=== PATIENT | female | born 1950 | race Caucasian/White ===

== ENCOUNTER 2016-12-29 02:32 | Emergency (ER) | payer MEDICARE, OTHER ==
[2016-12-29] MEDS ORDERED: Ondansetron 4 MG/2 ML SDV IV ONE (02:38)
[2016-12-29] MEDS ORDERED: Pantoprazole 40 MG Vial IVPUSH ONE (02:38)
--- NOTE | 2016-12-29 02:41 | EDM.PDOC ---
ED HPI GENERAL MEDICAL PROBLEM - General Chief Complaint: Gastrointestinal Problem Stated Complaint: VOMITING BLOOD [phone] Time Seen by Provider: 12/29/16 02:39 Source of Information: Reports: Patient, Family History Limitations: Reports: No Limitations - History of Present Illness INITIAL COMMENTS - FREE TEXT/NARRATIVE: states got up to bathroom and suddenly vomited blood. spouse states dark alcantara colour. denies any pain. no ulcers but does have divertic. denies diarrhoea. spouse states Pt had good appetite yesterday but not today. also denies prior h/ o. - Related Data Allergies Allergy/AdvReac Type Severity Reaction Status Date / Time No Known Allergies Allergy Verified 12/29/16 02:44 Home Meds: Home Meds Enalapril [Vasotec] 10 mg PO DAILY 12/29/16 [History] Sertraline [Zoloft] 50 mg PO DAILY 12/29/16 [History] ED ROS GENERAL - Review of Systems Review Of Systems: ROS reveals no pertinent complaints other than HPI. ED EXAM, GI/ABD - Physical Exam Exam: See Below Exam Limited By: No Limitations General Appearance: Alert, WD/WN, Mild Distress, Other (discomfort) Ears: Hearing Grossly Normal Throat/Mouth: Normal Voice, No Airway Compromise Head: Atraumatic Neck: Non-Tender, Full Range of Motion Respiratory/Chest: No Respiratory Distress Cardiovascular: Regular Rate, Rhythm GI/Abdominal: Soft, Non-Tender, Hyperactive Bowel Sounds Rectal (Female) Exam: Other (dark minimal stool obtained) Neurological: Alert, Oriented, Normal Cognition, Normal Gait, No Motor/Sensory Deficits Psychiatric: Flat Affect Skin Exam: Warm, Dry Lymphatic: No Adenopathy Course - Vital Signs Last Recorded V/S: Last Vital Signs Temp 35.8 C 12/29/16 02:35 Pulse 99 12/29/16 02:59 Resp 18 12/29/16 02:59 BP 105/80 12/29/16 02:59 Pulse Ox 98 12/29/16 02:59 - Orders/Labs/Meds Orders: Active Orders 24 hr Category Date Time Status Pantoprazole [ProTONIX IV] 40 mg Med 12/29/16 02:45 Active Sodium Chloride 0.9% [Normal Saline] 100 ml IV .CONTINUOS Sodium Chloride 0.9% [Normal Saline] 1,000 ml Med 12/29/16 02:45 Active IV ASDIRECTED Sodium Chloride 0.9% [Normal Saline] 1,000 ml Med 12/29/16 03:00 Ordered IV ASDIRECTED Medication Orders Pantoprazole Sodium 40 mg/ (Sodium Chloride) 100 mls @ 20 mls/hr IV .CONTINUOS MARIANGEL Last Admin: 12/29/16 02:48 Dose: 20 mls/hr Sodium Chloride (Normal Saline) 1,000 mls @ 500 mls/hr IV ASDIRECTED MARIANGEL Last Admin: 12/29/16 02:41 Dose: 500 mls/hr Sodium Chloride (Normal Saline) 1,000 mls @ 500 mls/hr IV ASDIRECTED MARIANGEL Last Admin: 12/29/16 02:59 Dose: 500 mls/hr Labs: Laboratory Tests 12/29/16 12/29/16 12/29/16 Range/Units 02:36 02:36 02:36 WBC 10.8 H (5.0-10.0) 10^3/uL RBC 2.98 L (4.2-5.4) 10^6/uL Hgb 9.3 L (12.0-16.0) g/dL Hct 28.4 L (37.0-47.0) % MCV 95.3 (80-100) fL MCH 31.2 (27.0-34.0) pg MCHC 32.7 L (33.0-35.0) g/dL Plt Count 272 (150-450) 10^3/uL Neut % (Auto) 55.0 (42.2-75.2) % Lymph % (Auto) 33.7 (20.5-50.1) % [place] % (Auto) 8.2 H (2-8) % Eos % (Auto) 2.6 (1.0-3.0) % Baso % (Auto) 0.5 (0.0-1.0) % PT 10.0 (9.0-12.0) SEC INR 1.0 (0.9-1.2) APTT < 22.0 L (22.0-34.0) SEC Sodium 137 (135-145) mmol/L Potassium 3.9 (3.6-5.0) mmol/L Chloride 104 (101-111) mmol/L Carbon Dioxide 22.0 (21.0-31.0) mmol/L Anion Gap 14.9 BUN 45 H (7-18) mg/dL Creatinine 0.7 (0.6-1.3) mg/dL Est Cr Clr Drug Dosing 72.01 mL/min Estimated GFR (MDRD) > 60 BUN/Creatinine Ratio 64.28 Glucose 157 H (74-105) mg/dL Calcium 9.1 (8.4-10.2) mg/dl Total Bilirubin 0.8 (0.2-1.0) mg/dL AST 18 (10-42) IU/L ALT 19 (10-60) IU/L Alkaline Phosphatase 51 (42-121) IU/L Total Protein 6.1 L (6.7-8.2) g/dl Albumin 3.4 (3.2-5.5) g/dl Globulin 2.7 Albumin/Globulin Ratio 1.26 Meds: Medications Generic Name Dose Route Start Last Admin Trade Name Freq PRN Reason Stop Dose Admin Pantoprazole Sodium 40 mg/ 100 mls @ 20 mls/hr 12/29/16 02:45 12/29/16 02:48 Sodium Chloride IV 20 mls/hr .CONTINUOS MARIANGEL Administration Sodium Chloride 1,000 mls @ 500 mls/hr 12/29/16 02:45 12/29/16 02:41 Normal Saline IV 500 mls/hr ASDIRECTED MARIANGEL Administration Sodium Chloride 1,000 mls @ 500 mls/hr 12/29/16 03:00 12/29/16 02:59 Normal Saline IV 500 mls/hr ASDIRECTED MARIANGEL Administration Discontinued Medications Generic Name Dose Route Start Last Admin Trade Name Freq PRN Reason Stop Dose Admin Iopamidol 100 ml 12/29/16 02:56 12/29/16 03:11 Isovue-300 (61%) IVPUSH 12/29/16 02:57 100 ml ONETIME ONE Administration Ondansetron HCl 4 mg 12/29/16 02:38 12/29/16 02:44 Zofran IV 12/29/16 02:39 4 mg ONETIME ONE Administration Pantoprazole Sodium 80 mg 12/29/16 02:38 12/29/16 02:46 Protonix Iv IVPUSH 12/29/16 02:39 80 mg .BOLUS ONE Administration - Re-Assessments/Exams Free Text/Narrative Re-Assessment/Exam: 12/29/16 04:29 re-exam; resting peacefully no further c/o N/V. case discussed with Dr Pza @ who kindly accepted Pt. Departure - Departure Time of Disposition: 04:29 Disposition: DC/Tfer to Acute Hospital 02 Condition: Good Clinical Impression: Upper GI bleed, Lower GI bleed - Discharge Information Forms: Interfacility Transfer EMTALA - My Orders Last 24 Hours: My Active Orders 12/29/16 02:45 Pantoprazole [ProTONIX IV] 40 mg Sodium Chloride 0.9% [Normal Saline] 100 ml IV .CONTINUOS Sodium Chloride 0.9% [Normal Saline] 1,000 ml IV ASDIRECTED 12/29/16 03:00 Sodium Chloride 0.9% [Normal Saline] 1,000 ml IV ASDIRECTED - Assessment/Plan Last 24 Hours: My Active Orders 12/29/16 02:45 Pantoprazole [ProTONIX IV] 40 mg Sodium Chloride 0.9% [Normal Saline] 100 ml IV .CONTINUOS Sodium Chloride 0.9% [Normal Saline] 1,000 ml IV ASDIRECTED 12/29/16 03:00 Sodium Chloride 0.9% [Normal Saline] 1,000 ml IV ASDIRECTED
[2016-12-29] MEDS ORDERED: Pantoprazole 40 MG in Sodium Chloride 0.9% 100 ML IV SCH (02:45)
[2016-12-29] MEDS ORDERED: Sodium Chloride 0.9% 1,000 ML IV SCH ×2 (02:45→03:00)
[2016-12-29] MEDS ORDERED: Iopamidol 612 MG/ML 100 ML Bottle IVPUSH ONE (02:56)
[2016-12-29 03:00] VITALS: BP 105/80
[2016-12-29 03:03] LABS: CHLORIDE,CL 104 mmol/L (101-111); SODIUM,NA 137 mmol/L (135-145)
== END 2016-12-29 05:21 ==
LOC: DL.ED 02:32
DX: K92.0 Hematemesis (principal); Z79.899 Other long term (current) drug therapy; R10.13 Epigastric pain; K57.90 Diverticulosis of intestine, part unspecified, without perforation or abscess without bleeding
CPT/HCPCS: 36415; 74177; 80053; 82272; 85025; 85610; 85730; 96365; 96366; 96368; 96375; 96376; 99284; 99285; C9113; J2405; J7030; J7050; Q9967